=== PATIENT | female | born 1995 | race Caucasian/White ===

== ENCOUNTER 2024-03-27 13:42 | Emergency (ER) | payer SELFPAY ==
[2024-03-27] MEDS ORDERED: TETRACAINE HCL 0.5% 4ML OPTH ONE (14:36)
[2024-03-27] MEDS ORDERED: FLUORESCEIN SODIUM 1 MG/WRAP ONE (14:36)
--- NOTE | 2024-03-27 15:10 | ER ---
Nurse's Notes [facility] Name: Tracy Zhang Age: 28 yrs Sex: Female : 1995 Arrival Date: 03/27/2024 Time: 13:42 Bed 16 Private MD: Diagnosis: Injury of conjunctiva and corneal abrasion without foreign body Presentation: 03/27 13:56 Chief complaint: Patient states: right eye pain x2 days, denies blurry vision. rs5 Coronavirus screen: At this time, the client does not indicate any symptoms associated with coronavirus-19. Ebola Screen: No symptoms or risks identified at this time. Mechanism of Injury:. Initial Sepsis Screen: Does the patient meet any 2 criteria? No. Patient's initial sepsis screen is negative. Does the patient have a suspected source of infection? No. Patient's initial sepsis screen is negative. Risk Assessment: Do you want to hurt yourself or someone else? Patient reports no desire to harm self or others. Onset of symptoms was March 27, 2024. 13:56 Method Of Arrival: Ambulatory rs5 13:56 Acuity: PATRICK 4 rs5 Triage Assessment: 13:59 General: Appears in no apparent distress. uncomfortable, Behavior is calm, cooperative. rs5 Historical: - Allergies: 13:58 Erythromycin; rs5 - PMHx: 13:58 "bladder issues"; rs5 - PSHx: 13:59 'tubal ligation"; rs5 - Immunization history:: Adult Immunizations up to date. - Infectious Disease History:: Denies. - Social history:: Smoking status: Patient denies any tobacco usage or history of. Screenin:00 [facility] ED Fall Risk Assessment (Adult) History of falling in the last 3 months, rs5 including since admission No falls in past 3 months (0 pts) Confusion or Disorientation No (0 pts) Intoxicated or Sedated No (0 pts) Impaired Gait No (0 pts) Mobility Assist Device Used No (0 pt) Altered Elimination No (0 pt) Score/Fall Risk Level 0 - 2 = Low Risk Oriented to surroundings, Maintained a safe environment. Abuse screen: Denies threats or abuse. Nutritional screening: No deficits noted. Tuberculosis screening: No symptoms or risk factors identified. Assessment: 14:00 General: Appears in no apparent distress. uncomfortable, Behavior is calm, cooperative. rs5 Pain: Complains of pain in right eye pain Pain currently is 3 out of 10 on a pain scale. Quality of pain is described as aching, Is continuous. Neuro: Level of Consciousness is awake, alert, obeys commands, Oriented to person, place, time, situation. Cardiovascular: Patient's skin is warm and dry. Respiratory: Airway is patent Respiratory effort is even, unlabored, Respiratory pattern is regular, symmetrical. GI: Abdomen is round non-distended, Abd is soft and non tender X 4 quads. : No signs and/or symptoms were reported regarding the genitourinary system. EENT: Eyes pt reports "my right eye hurts". Sclera/Cornea are clear in bilat. Derm: Skin is intact, Skin is pink, warm \\T\\ dry. Musculoskeletal: Range of motion: intact in all extremities. 15:05 Reassessment: Patient and/or family updated on plan of care and expected duration. Pain rs5 level reassessed. Patient is alert, oriented x 3, equal unlabored respirations, skin warm/dry/pink. 15:55 Reassessment: Patient and/or family updated on plan of care and expected duration. Pain rs5 level reassessed. Patient is alert, oriented x 3, equal unlabored respirations, skin warm/dry/pink. Vital Signs: 13:56 BP 127 / 90; Pulse 82; Resp 17; Temp 98(O); Pulse Ox 98% ; rs5 15:50 BP 125 / 84; Pulse 70; Resp 17; Pulse Ox 99% ; rs5 ED Course: 13:47 Patient arrived in ED. ra3 13:53 Robin Russell, JULIO is Primary Nurse. rs5 13:54 Gabino Samuels MD is Attending Physician. ec2 13:58 Triage completed. rs5 14:00 Arm band placed on. iw 14:00 Patient has correct armband on for positive identification. Placed in gown. Bed in low rs5 position. Call light in reach. Side rails up X2. 14:00 No provider procedures requiring assistance completed. rs5 15:10 Tyron Bella MD is Referral Physician. ec2 15:50 Provided Education on: discharge instrutions . rs5 15:50 Patient did not have IV access during this emergency room visit. rs5 Administered Medications: No medications were administered Medication: 14:20 VIS not applicable for this client. rs5 Outcome: 15:10 Discharge ordered by . ec2 15:50 Discharged to home ambulatory, rs5 15:50 Condition: stable 15:50 Discharge instructions given to patient, family, Instructed on discharge instructions, follow up and referral plans. medication usage, Demonstrated understanding of instructions, follow-up care, medications, Prescriptions given X 1, 16:00 Patient left the ED. rs5 Signatures: Sheila Donaldson RN RN Robin Russell RN RN rs5 Gabino Samuels MD MD ec2 Mandi Durham ra3
--- NOTE | 2024-03-27 15:10 | EDPHYS ---
Physician Documentation [facility] Name: Tracy Zhang Age: 28 yrs Sex: Female : 1995 Arrival Date: 03/27/2024 Time: 13:42 Bed 16 Private MD: ED Physician Gabino Samuels HPI: 03/27 14:17 This 28 yrs old Female presents to ER via Ambulatory with complaints of Eye ec2 Pain - right. 14:17 Patient arrives today for right eye pain onset 1 day. Patient reports no trauma or ec2 injury. Denies drainage. Denies any redness. No fevers or chills, nausea or vomiting. Does not wear contact lenses.. Historical: - Allergies: 13:58 Erythromycin; rs5 - PMHx: 13:58 "bladder issues"; rs5 - PSHx: 13:59 'tubal ligation"; rs5 - Immunization history:: Adult Immunizations up to date. - Infectious Disease History:: Denies. - Social history:: Smoking status: Patient denies any tobacco usage or history of. ROS: 14:17 Constitutional: as per hpi ec2 Exam: 14:17 Constitutional: GEN: NAD Head: atraumatic Eyes: EOMI, right eye with intact range of ec2 motion, no conjunctival injection, intact pupillary response bilaterally with consensual and direct visualization. Ears: External ears are normal. CV: regular rate LUNGS: no respiratory distress ABD: non-distended SKIN: no evidence of rashes MSK: no evidence of trauma Vital Signs: 13:56 BP 127 / 90; Pulse 82; Resp 17; Temp 98(O); Pulse Ox 98% ; rs5 15:50 BP 125 / 84; Pulse 70; Resp 17; Pulse Ox 99% ; rs5 MDM: 14:15 Medical Screening Exam initiated ec2 15:14 Data reviewed: vital signs. ec2 03/27 14:16 Order name: Eye Tray; Complete Time: 14:41 ec2 03/27 14:16 Order name: Fluoresene Opth strip; Complete Time: 14:41 ec2 Administered Medications: No medications were administered Disposition Summary: 03/27/24 15:10 Discharge Ordered Notes: Location: Home ec2 Condition: Stable ec2 Diagnosis - Injury of conjunctiva and corneal abrasion without foreign body ec2 Followup: ec2 - With: Tyron Bella MD - When: - Reason: Recheck today's complaints Discharge Instructions: - Discharge Summary Sheet ec2 - Corneal Abrasion, [id number] ec2 Forms: - Medication Reconciliation Form ec2 - Antibiotic Education ec2 - Prescription Opioid Use ec2 - Patient Portal Instructions ec2 - Leadership Thank You Letter ec2 Prescriptions: - ciprofloxacin HCl 0.3 % Ophthalmic drops - instill 2 drop OPHTHALMIC route every 6 hours; 5 milliliter; Refills: 0, ec2 Product Selection Permitted - ketorolac 0.5 % Ophthalmic drops - instill 2 drop OPHTHALMIC route 4 times per day; 5 milliliter; Refills: 0, ec2 Product Selection Permitted Signatures: Robin Russell RN RN rs5 Gabino Samuels MD MD ec2
[2024-03-27 16:20] VITALS: BP 127/90; TEMP 98; O2SAT 98
== END 2024-03-27 16:00 | disposition home or self-care (01) ==
LOC: ER 13:42
DX: S05.01XA Injury of conjunctiva and corneal abrasion without foreign body, right eye, initial encounter (principal)
CPT/HCPCS: 99283